=== PATIENT | female | born 1950 | race Caucasian/White ===

== ENCOUNTER 2017-05-15 16:08 | Emergency (ER) | payer OTHER, MEDICARE ==
[~2017-05-15] VITALS: Ht 181.6 cm; Wt 55.9 kg
[2017-05-15 16:41] VITALS: BP 149/78; PULSE 69; RESP 14; O2SAT 99
--- NOTE | 2017-05-15 18:02 | ED.REPORT ---
HPI-General Illness Date of Service May 15, 2017 ED Provider: Chan Boyer MD Pt is a 66 y/o female with a history of hypertension who presents to the ED sent from complaining of right fourth toe pain onset __. She was sent from for a possible arterial insufficiency. Nursing Notes Stated Complaint: INFLAMED TOE Chief Complaint: Extremity Trauma Nursing Notes Reviewed: Yes Allergies: Coded Allergies: No Known Allergies (Unverified , 05/15/17) General Time Seen by MD: 18:00 Chief Complaint Other (Right fourth toe pain) Hx Obtained From: Patient Arrived By: Walk-in Recent Healthcare: No recent doctor visit, No recent hospitalization Past Medical History Past Medical History Reports: Hypertension Ambulatory Status Independent Review of Systems Complete sys rev & neg: except as marked. Physical Exam Nursing note and vitals reviewed. Constitutional: Well-developed, well-nourished. Not diaphoretic. Head: Normocephalic and atraumatic. Mouth/Throat: Oropharynx is clear and moist. No oropharyngeal exudate. Eyes: EOM are normal. Pupils are equal, round, and reactive to light. Neck: Supple, no tracheal deviation. Cardiovascular: Normal rate, regular rhythm. Equal and intact distal pulses throughout. Pulmonary/Chest: Effort normal and breath sounds normal. No respiratory distress. Abdominal: Soft. No distension. There is no tenderness, rebound, or guarding. Bowel sounds present. Musculoskeletal: Range of motion grossly intact, moving all extremities. No edema or tenderness appreciated. Neurological: AOx3. Grossly nonfocal exam. Strength and sensation intact and equal to bilateral upper and lower extremities. Normal finger to nose testing . No pronator drift. Negative Romberg, unremarkable gait. Skin: Warm and dry, no rashes or pallor appreciated. Psychiatric: Appropriate mood and affect. Behavior appears normal. Vital Signs Vital Signs Date Time Temp Pulse Resp B/P Pulse Ox O2 Delivery O2 Flow Rate FiO2 05/15/17 16:41 36.7 69 14 149/78 99 Room Air Initial VS: Reviewed Re-Eval/Medical Decision Source of Hx: Old records Counseled Regarding: Diagnosis, Lab results Discharge & Departure Discharge Condition All VS Reviewed: Yes Condition: Stable Referrals: Karla Villaseñor PA-C (PCP) Scribe Attestation Portions of this note were transcribed by Magalie Colon. I, Dr. Boyer, personally performed the history, physical exam and medical decision-making; I reviewed and confirmed the accuracy of the information in the transcribed note. copies to: Karla Villaseñor PA-C, William B MD May 15, 2017 18:02 Magalie Colon May 15, 2017 18:10
== END 2017-05-15 19:04 | disposition left against medical advice (07) ==
LOC: SED 16:08
DX: R23.9 Unspecified skin changes (principal); Z53.21 Procedure and treatment not carried out due to patient leaving prior to being seen by health care provider